=== PATIENT | male | born 1940 | race Two or more races ===

== ENCOUNTER 2021-06-02 14:23 | Emergency (ER) | payer BC ==
[~2021-06-02] VITALS: Ht 165.1 cm; Wt 108.9 kg
--- NOTE | 2021-06-02 14:45 | NUR ---
The patient is [id number], from [facility], slid off his wheelchair c/o lower back pain 8 ps. The patient is alert and oriented x2. Denies SOB. Respiration regular and unlabored. Attached to the monitor.
--- NOTE | 2021-06-02 14:48 | NUR ---
The patient is taken to CT via [facility]
--- NOTE | 2021-06-02 15:07 | NUR ---
THE PATIENT IS BACK FROM CT
[2021-06-02] MEDS ORDERED: HYDROCODONE/APAP 5/325MG TABLET PO ONE (16:30)
--- NOTE | 2021-06-02 17:00 | NUR ---
CALLED [facility] AND SET UP S TRANSPORT TO [facility]. ETA [phone]
[2021-06-02] MEDS ORDERED: TRAMADOL HCL 50 MG TABLET PO ONE (17:30)
[2021-06-02] MEDS ORDERED: TRAMADOL HCL 50 MG TABLET ONE (18:14)
--- NOTE | 2021-06-02 18:30 | NUR ---
Patient discharged in stable condition. Written and verbal after care instructions given. The verbalizes understanding of instruction.
[2021-06-02 19:00] VITALS: BP 126/75
== END 2021-06-02 19:00 | disposition home or self-care (01) ==
LOC: ER 14:36
DX: S09.8XXA Other specified injuries of head, initial encounter (principal); G89.29 Other chronic pain; M54.50 Low back pain, unspecified; M25.552 Pain in left hip; M25.562 Pain in left knee; I10 Essential (primary) hypertension; K21.9 Gastro-esophageal reflux disease without esophagitis; G62.9 Polyneuropathy, unspecified; W05.0XXA Fall from non-moving wheelchair, initial encounter; Y93.89 Activity, other specified; Y92.89 Other specified places as the place of occurrence of the external cause; Y99.8 Other external cause status
CPT/HCPCS: 70450-TC; 71045-TC; 72125-TC; 72170-TC; 73564-TC